=== PATIENT | male | born 1940 | race Caucasian/White ===

== ENCOUNTER → 2019-05-12 | Outpatient (CLI) | payer MEDICARE, SELFPAY ==
[2019-05-12 12:26] LABS: International Normalized Ratio 1.4; Prothrombin Time (Protime)PT. 16.7 SECONDS (11.7-14.9)
== END | disposition home or self-care (01) ==
PROVIDERS: Referring Provider Family Medicine; Visit Provider Family Medicine
DX: I48.0 Paroxysmal atrial fibrillation (principal)
CPT/HCPCS: 85610

== ENCOUNTER 2023-01-28 09:58 | Emergency (ER) | payer MEDICARE, SELFPAY ==
[2023-01-28 09:59] VITALS: BP 127/77; PULSE 80; RESP 16; TEMP 36.2; O2SAT 99; BMI 25.5
--- NOTE | 2023-01-28 10:16 | ED.RN ---
swollen, tender area to soft tissue right upper chest, size of baseball. Ecchymosis noted around breast tissue extending from sternum below and around to right flank.
--- NOTE | 2023-01-28 10:56 | CT_ITS ---
HISTORY: hematoma. TECHNIQUE: CT of the chest was performed after the intravenous administration of 100 mL Isovue-370. Coronal and sagittal reformatted images. Individualized dose optimization techniques were used for this CT. 921 images. COMPARISON: None. FINDINGS: CENTRAL AIRWAYS: Patent. LUNGS: Very mild linear anterior and bibasilar scarring multiple noncalcified nodules measuring up to 4 mm in the right middle lobe, 6 mm in the right lower lobe adjacent to the diaphragm, and 3 mm pleural-based in the left lower lobe. PLEURA: No pneumothorax or significant pleural effusion. HEART/PERICARDIUM: Heart within normal limits in size. 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 No pericardial effusion. AORTA/VESSELS: Mild 3.3 cm fusiform outpouching of the distal aortic arch near the isthmus. No contrast leak. No large central filling defect identified in the pulmonary arteries. MEDIASTINUM/CASSIE: No pathologically enlarged lymph nodes. CHEST WALL: Degenerative change of the osseous structures without acute displaced fracture. 3.4 x 4.7 cm enlargement of the right deep pectoralis muscle in the upper chest with mild subcutaneous stranding in the right anterior chest wall. No active contrast extravasation. UPPER ABDOMEN: 1.[address]/Chest WITH Contrast IMPRESSION: 3.4 x 4.7 cm enlargement of the right deep pectoralis muscle in the upper chest with mild subcutaneous edema of the right anterior chest wall, concerning for intramuscular hematoma without active contrast extravasation. Consider follow-up to resolution to exclude underlying mass. Bilateral pulmonary nodules measuring up to 6 mm in the right lower lobe; recommend 3-6 month follow-up. 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 Cholelithiasis. Electronically Signed: Joann Hernández MD at 12:07 EST ,
--- NOTE | 2023-01-28 10:56 | EKG12_ITS ---
Test Reason : Blood Pressure : / mmHG Vent. Rate : 068 BPM Atrial Rate : 000 BPM P-R Int : 000 ms QRS Dur : 102 ms QT Int : 394 ms P-R-T Axes : 000 015 061 degrees QTc Int : 418 ms Atrial fibrillation Abnormal ECG Confirmed by PEGGY LI, KESHA ([id number]), city editor STEPHANIE MAE ([id number]) on 02/06/2023 2:12:33 PM Referred By: Confirmed By:KESHA WOODS MD
--- NOTE | 2023-01-28 11:03 | EX.ED.DYSGE1 ---
HPI History of Present Illness Chief Complaint: Chest Other Detail of Chief Complaint: Chest wall bruising Informant: patient and spouse/S.O. Narrative Narrative: Patient presents secondary to soft lump on his right chest and bruising. Patient states he noted a soft mass in the upper right chest near the clavicle about Sunday or Sunday of last week. He was seen at urgent care and had x-rays done that were unremarkable. Later that day he noted some bruising over his right chest. He is on Coumadin for history of A-fib and was concerned that his blood must be too thin so he stopped his Coumadin, last dose being Sunday evening. He continues to have chest wall bruising. He states he does not have pain. He denies any known injury. [facility] Medical History Arthritis Atrial fibrillation Heart disease Hypertension Home Medications atorvastatin 10 mg tablet 10 mg PO DAILY 11/11/20 [History Last Taken Unknown] allopurinol 300 mg tablet 300 mg PO DAILY 01/28/23 [History Last Taken Unknown] bupropion HCl 150 mg 24 hr tablet, extended release 150 mg PO DAILY 01/28/23 [History Last Taken Unknown] furosemide 20 mg tablet 20 mg PO DAILY 01/28/23 [History Last Taken Unknown] lisinopril 5 mg tablet 5 mg PO DAILY 01/28/23 [History Last Taken Unknown] metformin 500 mg tablet,extended release 24 hr 500 mg PO DAILY 01/28/23 [History Last Taken Unknown] metoprolol succinate 25 mg tablet,extended release 24 hr 25 mg PO DAILY 01/28/23 [History Last Taken Unknown] warfarin 2 mg tablet 2 mg PO .COMPLEX 01/28/23 [History Last Taken Unknown] warfarin 5 mg tablet mg 01/28/23 [History Last Taken Unknown] Allergy/AdvReac Type Severity Reaction Status Date / Time Penicillins Allergy Unknown unknown Verified 01/28/23 09:59 Family History Other Heart disease Surgical History H/O heart bypass surgery Social History Smoking Status: Never smoker ROS ROS ED Constitutional Constitutional ED: Denies chills or fever(s) Eyes Eyes: Denies change in vision ENT ENT ED: Denies rhinorrhea or sore throat Cardiovascular Cardiovascular: Denies chest pain or palpitations Respiratory/Chest Respiratory/Chest: Denies cough or dyspnea Gastrointestinal Gastrointestinal: Denies abdominal pain, nausea or vomiting Genitourinary Genitourinary ED: Denies dysuria Musculoskeletal Musculoskeletal: Denies back pain or extremity pain Integumentary Denies Abrasions or rash Neurologic Neurologic: Denies headache(s) or weakness Psychiatric Psychiatric: Denies anxiety or depression Allergic/Immunologic Allergic/Immunologic ED: Denies lip swelling or urticaria EXAM Physical Exam Const Vital Signs: 01/28/23 09:59 01/28/23 10:08 Temperature 97.2 F L Temperature Source Temporal Pulse Rate 80 Respiratory Rate 16 Respiratory Effort Normal Non-Labored Blood Pressure 127/77 H Blood Pressure Mean 93 Pulse Ox 99 Oxygen Delivery Method Room Air Positive well nourished and well developed General Appearance ED: well developed HEENT Reports moist mucous membranes Eyes EOMs intact bilaterally Chest Wall Chest Narrative: Small soft tissue mass that is mobile near the lateral portion of the right clavicle. No overlying skin changes to this area. Dark purple appearing bruising noted to the right pectoral region. No tenderness. Resp normal respiratory effort and clear to auscultation bilaterally Cardio regular rate and regular rhythm GI non-tender Auscultation: normoactive bowel sounds Extremity normal to inspection Neuro oriented x3 and no sensory deficits noted Motor Exam: strength 5/5 throughout Psych mental status grossly normal Skin Skin Narrative: Hematoma to chest wall is noted. MDM MDM MDM Narrative Medical decision making narrative: IV line established. Labwork obtained to evaluate for leukocytosis, anemia, and electrolyte derangement. EKG obtained to evaluate for cardiac arrhythmia/ischemia. CT of the chest with contrast obtained to evaluate for hematoma. History & Record Review Discussion w/independent historian: Patient and Significant other Lab Data Attestation: I reviewed the patient's lab results. Labs: Laboratory Results - last 24 hr 01/28/23 11:00 WBC 6.3 RBC 3.98 L Hgb 12.7 L Hct 38.9 L MCV 97.7 H MCH 31.9 MCHC 32.6 RDW Std Deviation 46.7 H RDW Coeff of Chen 13.1 Plt Count 161 MPV 11.0 Immature Gran % (Auto) 0.200 Neut % (Auto) 72.8 H Lymph % (Auto) 15.[address] [place] % (Auto) 9.4 Eos % (Auto) 2.2 Baso % (Auto) 0.3 Absolute Neuts (auto) 4.6 Absolute Lymphs (auto) 0.95 Nucleated RBC % 0 PT 21.2 H INR 1.8 APTT 33.3 Sodium 137 Potassium 4.2 Chloride 105 Carbon Dioxide 29.0 Anion Gap 3 L BUN 20 H Creatinine 1.21 Estim Creat Clear Calc 48.69 Est GFR (MDRD) Af Amer 74 Est GFR (MDRD) Non-Af 61 BUN/Creatinine Ratio 16.5 Glucose 130 H Calcium 9.0 Radiography Diagnostic Testing: Clinical Impression(s) from Imaging Studies Chest CT 01/28/23 10:56 IMPRESSION: 3.4 x 4.7 cm enlargement of the right deep pectoralis muscle in the upper chest with mild subcutaneous edema of the right anterior chest wall, concerning for intramuscular hematoma without active contrast extravasation. Consider follow-up to resolution to exclude underlying mass. Bilateral pulmonary nodules measuring up to 6 mm in the right lower lobe; recommend 3-6 month follow-up. 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 Cholelithiasis. Electronically Signed: Joann Hernández MD at 12:07 EST , EKG Initial EKG: Attestation: I personally reviewed and interpreted this EKG as follows: Interpretation: Atrial Fibrillation (Atrial fibrillation at 68 bpm. No acute ischemia.) Treatment and Re-Evaluation :: CBC was normal white count at 6.3 with a hemoglobin of 12.7. Most recent hemoglobin values I was able to obtain was from December 18 of this year at which time his hemoglobin was 13.5. In May of this year his hemoglobin was 13.9. Chemistry studies are unremarkable. His creatinine is 1.21. His INR is slightly low at 1.8. CT of the chest reveals a 3.5 x 5 cm hematoma in the upper right pectoral muscle. There does not appear to be any evidence of active contrast extravasation. 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 CT results are discussed with the patient. I advised him I do feel that it is safe for him to restart his Coumadin as he is in persistent A-fib and there is no evidence of active extravasation. He has an appointment with nurse practitioner at [facility] tomorrow and will further discuss this. They were also made aware of the aneurysm of the aortic arch. They have follow-up scheduled with his heart surgeon in March and will be sure to discuss this. Return instructions are given. Discharge Plan Triage Chief Complaint: Chest Other ED Provider: Maggie Patel Dx/Rx/DC Orders Clinical Impression: Chest wall hematoma Instructions: ED Hematoma Prescriptions: No Action atorvastatin 10 mg tablet 10 mg PO DAILY allopurinol 300 mg tablet 300 mg PO DAILY Patient Comments: take 1 tablet by mouth once daily furosemide 20 mg tablet 20 mg PO DAILY Patient Comments: take 1 tablet by mouth once daily if needed bupropion HCl 150 mg tablet extended release 24 hr 150 mg PO DAILY Patient Comments: take 1 tablet by mouth once daily lisinopril 5 mg tablet 5 mg PO DAILY Patient Comments: take 1 tablet by mouth once daily metformin 500 mg tablet extended release 24 hr 500 mg PO DAILY Patient Comments: take 1 tablet by mouth EVERY MORNING WITH BREAKFAST metoprolol succinate 25 mg tablet extended release 24 hr 25 mg PO DAILY Patient Comments: take 1 tablet by mouth once daily warfarin 2 mg tablet 2 mg PO .COMPLEX Patient Comments: take 2 milligrams ON SUNDAY, AND 2.5 MILLIGRAMS ALL OTHER DAYS OR DIRECTED Rx Instructions: 2 mg orally sunday; 2.5mg sunday, sunday, , sunday, sunday, sunday; warfarin 5 mg tablet Patient Comments: take 2 milligrams ON SUNDAY AND 2.5 milligrams ON ALL OTHER DAYS OR DIRECTED BY PHYSICIAN Primary Care Provider: Herve Linares Referrals: Care Physician,No Primary [Non-Staff] - Herve Linares MD [Primary Care Provider] - [facility] appointment Disposition Disposition: Home, Self Care
[2023-01-28 11:11] LABS: Absolute Lymphocyte Count 0.95 X10^3/uL (0.83-4.51); Absolute Neutrophil Count 4.6 X10^3/uL (2.0-7.7); Basophil# 0.02 X10^3/uL; Basophil% 0.3 % (0-1); Eosinophil# 0.14 X10^3/uL; Eosinophils% 2.2 % (0-5); Hematocrit 38.9 % (40-54); Hemoglobin 12.7 g/dL (13.0-16.5); Lymphocyte # 0.95 X10^3/ul (0.83-4.51); Lymphocyte % 15.1 % (19-41); Mean Corp Hgb Conc 32.6 g/dL (32-36); Mean Corpuscular Hgb 31.9 pg (27.0-32.0); Mean Corpuscular Volume 97.7 fL (80-94); Monocyte# 0.59 X10^3/uL; Monocyte% 9.4 % (0-10); NRBC Flagged by Analyzer 0 % (0-5); Neutrophil % 72.8 % (47-70); Platelet Count 161 K/mm3 (150-450); RBC Distribution Width CV 13.1 % (11.6-14.6); RBC Distribution Width SD 46.7 fl (35.1-43.9); Red Blood Count 3.98 M/mm3 (4.6-6.2); White Blood Count 6.3 K/mm3 (4.4-11.0)
[2023-01-28 11:21] LABS: Partial Thromboplast Time 33.3 Seconds (24.1-36.2)
[2023-01-28 11:25] LABS: Anion Gap 3 (5-15); BUN 20 mg/dL (7-18); BUN/Creat Ratio 16.5 RATIO (10-20); Chloride 105 mmol/L (98-107); Creatinine, Serum 1.21 mg/dL (0.70-1.30); EST Glomerular Filtration Rate 61 mL/min (>60); Est Glom Filt Rate - Afr Amer 74 mL/min (>60); Estimated Creatinine Clearance 48.69 ml/min; Glucose 130 mg/dL (74-106); Potassium 4.2 mmol/L (3.5-5.1); Sodium Level 137 mmol/L (136-145)
[2023-01-28 11:43] LABS: International Normalized Ratio 1.8; Prothrombin Time (Protime)PT. 21.2 SECONDS (11.7-14.9)
[2023-01-28 12:41] VITALS: BP 139/77; PULSE 62; RESP 15; O2SAT 98
== END 2023-01-28 12:42 | disposition home or self-care (01) ==
PROVIDERS: Emergency Provider Emergency Medicine; PCP Family Medicine; Visit Provider Emergency Medicine
DX: S20.20XA Contusion of thorax, unspecified, initial encounter (principal); I48.91 Unspecified atrial fibrillation; I10 Essential (primary) hypertension; Z79.01 Long term (current) use of anticoagulants; Z79.899 Other long term (current) drug therapy; X58.XXXA Exposure to other specified factors, initial encounter
CPT/HCPCS: 71260; 80048; 85025; 85610; 85730; 93005; 99284; Q9967; A4216